=== PATIENT | female | born 1975 | race Caucasian/White ===

== ENCOUNTER → 2017-01-10 | Outpatient (CLI) | payer BC ==
--- NOTE | 2017-01-11 16:03 | RAD ---
EXAM DESCRIPTION: Cervical Spine,3 Views CLINICAL HISTORY: ARM PAIN COMPARISON: None Available. TECHNIQUE: AP/lateral/ open-mouth odontoid FINDINGS: There is good alignment. There is no fracture or bone lesion. There is no soft tissue abnormality. The disc space at C5-6 is completely collapsed and there are prominent degenerative endplate changes. At least mild narrowing is present at C4-5 and C6-7 as well. IMPRESSION: 1. Advanced disc disease C5-C6 Electronically signed by: Jairo Enciso MD 01/11/2017 4:01 PM [facility]
--- NOTE | 2017-01-11 16:05 | RAD ---
EXAM DESCRIPTION: Forearm,Left CLINICAL HISTORY: 41 years Female, PAIN IN LEFT ARM COMPARISON: None. FINDINGS: 2 views of the left forearm show no acute fracture or malalignment. No focal bone lesion or periostitis. The soft tissues are unremarkable. IMPRESSION: Negative exam. Electronically signed by: Jamal Holley MD 01/11/2017 4:04 PM [facility]
--- NOTE | 2017-01-11 16:05 | RAD ---
EXAM DESCRIPTION: Shoulder,Left 2 or More Views CLINICAL HISTORY: 41 years Female, PAIN IN LEFT ARM COMPARISON: None. FINDINGS: 2 views of the left shoulder show no acute fracture or malalignment. The distal end of the left clavicle is slightly indistinct. The left AC joint is fairly well-maintained. No soft tissue abnormality. No apparent left-sided rib fracture. IMPRESSION: No acute left shoulder abnormality. Slightly indistinct appearance of the distal aspect of the left clavicle. This is nonspecific and may be related to remote trauma. This can also be seen with rheumatoid arthritis or hyperparathyroidism. Electronically signed by: Jamal Holley MD 01/11/2017 4:04 PM [facility]
== END ==
LOC: GMA 20:02
PROVIDERS: ATTEND Nurse Practitioner Acute Care
DX: M79.602 Pain in left arm (principal); M50.822 Other cervical disc disorders at C5-C6 level

== ENCOUNTER → 2017-01-10 | Outpatient (CLI) | payer BC | END | disposition home or self-care (01) | LOC: GMA 21:46 | PROVIDERS: ATTEND Nurse Practitioner Acute Care | DX: N30.00 Acute cystitis without hematuria (principal) ==

== ENCOUNTER → 2017-11-25 | Outpatient (CLI) | payer BC | LOC: GMATM 12:42 | PROVIDERS: ATTEND Nurse Practitioner Family | DX: N30.00 Acute cystitis without hematuria (principal); R10.9 Unspecified abdominal pain; R63.4 Abnormal weight loss ==

== ENCOUNTER → 2017-11-25 | Outpatient (CLI) | payer BC | LOC: GMATM 10:48 | PROVIDERS: ATTEND Nurse Practitioner Family | DX: N30.00 Acute cystitis without hematuria (principal) ==

== ENCOUNTER → 2017-11-29 | Outpatient (CLI) | payer BC | LOC: GMAJ 15:12 | PROVIDERS: ATTEND Family Medicine | DX: E80.7 Disorder of bilirubin metabolism, unspecified (principal); M25.50 Pain in unspecified joint ==

== ENCOUNTER → 2017-11-30 | Outpatient (CLI) | payer BC, OTHER ==
--- NOTE | 2017-11-30 15:30 | US ---
EXAM DESCRIPTION: Abdomen,Complete CLINICAL HISTORY: DISORDER OF BILIRUBIN METABOLISM COMPARISON: None Available. TECHNIQUE: Complete abdominal ultrasound FINDINGS: Visualized portions of the pancreas are unremarkable. No peripancreatic fluid. Bowel gas obscures some areas. Normal caliber of the aorta. Normal appearance of the inferior vena cava. Liver parenchyma is homogeneous in texture with normal echogenicity. No liver mass or intrahepatic bile duct dilatation. No liver surface irregularity. Normal appearance of hepatic veins and portal vein. Gallbladder appears normal in size with internal echogenic debris suggesting sludge or tiny nonshadowing calculi. Common bile duct is normal in caliber measuring 4.0 mm. The right kidney measures 9.6 cm in length. Normal renal cortical echogenicity. The renal cortical thickness appears normal. No right renal mass, shadowing stone or cyst. There is no hydronephrosis. Spleen is normal in size. No focal splenic lesion. The left kidney measures 10 cm in length. Normal renal cortical echogenicity. The renal cortical thickness appears normal. No left renal mass, shadowing stone or cyst. There is no hydronephrosis. IMPRESSION: Echogenic debris in the gallbladder consistent with sludge or tiny nonshadowing calculi. Electronically signed by: John Rizzo MD 11/30/2017 3:29 PM CDT
== END ==
LOC: US 10:05
PROVIDERS: ATTEND Family Medicine
DX: E80.7 Disorder of bilirubin metabolism, unspecified (principal)

== ENCOUNTER 2019-01-18 14:33 | Emergency (ER) | payer BC ==
[2019-01-18 14:46] VITALS: O2SAT 98
[2019-01-18] MEDS ORDERED: diazePAM INJ 10 MG/2 ML SYG IM ONE (14:58)
[2019-01-18] MEDS ORDERED: KETOROLAC TROMETHAMINE INJ 30 MG/ML VIAL IM ONE (14:58)
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
[2019-01-18] MEDS ORDERED: OXYMETAZOLINE NASAL SPRAY 15 ML BTTL NAS ONE (15:31)
[2019-01-18 15:55] VITALS: BP 130/75
== END 2019-01-18 15:30 | disposition home or self-care (01) ==
LOC: ER 14:33
DX: S16.1XXA Strain of muscle, fascia and tendon at neck level, initial encounter (principal); R51 Headache; Z88.8 Allergy status to other drugs, medicaments and biological substances; V40.5XXA Car driver injured in collision with pedestrian or animal in traffic accident, initial encounter; Y92.410 Unspecified street and highway as the place of occurrence of the external cause
CPT/HCPCS: J1885; J3360

== ENCOUNTER → 2020-01-08 | Outpatient (CLI) | payer BC | LOC: GMALS 14:46 | PROVIDERS: ATTEND Nurse Practitioner Acute Care | DX: Z01.419 Encounter for gynecological examination (general) (routine) without abnormal findings (principal); M25.50 Pain in unspecified joint ==

== ENCOUNTER → 2020-02-20 | Outpatient (CLI) | payer BC | LOC: GMALS 14:07 | PROVIDERS: ATTEND Nurse Practitioner Acute Care | DX: M10.9 Gout, unspecified (principal); R73.01 Impaired fasting glucose ==